=== PATIENT | female | born 1970 | race American Indian/Alaskan Native ===

== ENCOUNTER 2018-03-04 13:09 | Emergency (ER) | payer OTHER ==
[2018-03-04 13:48] VITALS: BMI 28.8
--- NOTE | 2018-03-04 13:52 | ED PDOC ---
Arrival/HPI - General Chief Complaint: Lower Extremity Problem/Injury Time Seen by Provider: 03/04/18 13:11 Historian: Patient - History of Present Illness Narrative History of Present Illness (Text): 03/04/18 13:49 47-year-old female presents today with left foot and ankle pain status post injury 6 days ago. Patient states she stepped incorrectly twisting the foot and ankle 6 days ago. Patient states she is been having slight pain with ambulation. Patient states she only has pain when she applies pressure. Patient states no medications have been taken for pain at home and she is refusing any medications for pain in the emergency room. Patient denies numbness weakness or tingling in the extremity. Patient states she has been ambulating on the ankle and foot normally. Patient states last night she noticed that the foot was swollen so she thought she would come into the emergency room for evaluation. No other complaints Time/Duration: Other (6 days ago) Past Medical History - Provider Review Nursing Documentation Reviewed: Yes - Travel History Have you recently traveled outside [place] w/in the past 3 mons?: No - Reproductive Menopause: No - Cardiac Hx Cardiac Disorders: Yes Hx Hypertension: Yes - Pulmonary Hx Respiratory Disorders: No - Neurological Hx Neurological Disorder: No - HEENT Hx HEENT Disorder: No - Renal Hx Renal Disorder: No - Endocrine/Metabolic Hx Endocrine Disorders: No - Hematological/Oncological Hx Blood Disorders: No - Integumentary Hx Dermatological Disorder: No - Musculoskeletal/Rheumatological Hx Musculoskeletal Disorders: No - Gastrointestinal Hx Gastrointestinal Disorders: No - Genitourinary/Gynecological Hx Genitourinary Disorders: No - Psychiatric Hx Psychophysiologic Disorder: No Hx Substance Use: No - Surgical History Hx Section: Yes - Anesthesia Hx Anesthesia: Yes Hx Anesthesia Reactions: No Hx Malignant Hyperthermia: No Family/Social History - Physician Review Nursing Documentation Reviewed: Yes Family/Social History: Unknown Family HX Smoking Status: Light Smoker < 10 Cigarettes Daily Hx Alcohol Use: Yes (socially) Hx Substance Use: No Allergies/Home Meds Allergies/Adverse Reactions: Allergies No Known Allergies Allergy (Verified 03/04/18 13:47) Review of Systems - Review of Systems Constitutional: absent: Fatigue, Fevers Respiratory: absent: SOB, Cough Cardiovascular: absent: Chest Pain, Palpitations Gastrointestinal: absent: Abdominal Pain, Nausea, Vomiting Genitourinary Female: absent: Dysuria Musculoskeletal: Arthralgias. absent: Back Pain, Neck Pain Skin: absent: Rash, Pruritis Neurological: absent: Headache, Dizziness Psychiatric: absent: Anxiety, Depression Physical Exam Vital Signs Reviewed: Yes Vital Signs Temp Pulse Resp BP Pulse Ox 03/04/18 13:40 197/104 H 03/04/18 13:37 98.4 F 80 17 100 Temperature: Afebrile Blood Pressure: Normal Pulse: Regular Respiratory Rate: Normal Appearance: Positive for: Well-Appearing, Non-Toxic, Comfortable Pain Distress: None Mental Status: Positive for: Alert and Oriented X 3 - Systems Exam Head: Present: Atraumatic Mouth: Present: Moist Mucous Membranes Neck: Present: Normal Range of Motion Respiratory/Chest: Present: Clear to Auscultation, Good Air Exchange. No: Respiratory Distress, Accessory Muscle Use Cardiovascular: Present: Regular Rate and Rhythm, Normal S1, S2. No: Murmurs Lower Extremity: Present: NORMAL PULSES, Normal ROM, Tenderness (left foot/ankle ; + ttp over the lateral aspect of the dorsal aspect of the foot and lateral malleolus. minimal edema, no erythema; full rom of foot and ankle. sensation and distal pulses intact. no achilles tendon tenderness, no calf tenderness. sensation and distal pulses intact. cap refill <2. ), Swelling, Neurovascularly Intact, Capillary Refill < 2 s. No: CALF TENDERNESS, Erythema, Deformity Neurological: Present: Speech Normal Skin: Present: Warm, Dry, Normal Color Psychiatric: Present: Alert, Oriented x 3 Medical Decision Making ED Course and Treatment: 03/04/18 13:53 Patient nontoxic well-appearing in no distress with stable vital signs PT IS REFUSING ANY MEDICATIONS FOR PAIN. X-rays of the left ankle: no fracture xrays of the left foot; ? fracture of cuboid. Patient placed in short leg posterior splint. crutches given for ambulation. I discussed all results in depth with the patient advised to followup with the orthopedist/market manager within the next 2 days. Advised return if symptoms worsen persist or new symptoms develop. pt was advised to use crutches for ambulation. advised patient of elevated blood pressure; pt states she has a hx of elevated blood pressure and didnt take her medications today; she is without headache/ dizziness/weakness/cp or sob. pt was advised to take her BP medication and f/u with PMD regarding her elevated bP. Patient verbalizes understanding of discharge instructions and need for immediate followup. all aspects of this case were discussed the attending of record. Impression: Fracture, foot Motrin every 6 hours as needed for pain Rest, ice, compression, elevation Use crutches for ambulation Followup with the orthopedist within the next 2 days Followup with primary care physician within the next 2 days Return if symptoms worsen persist or if new symptoms develop - RAD Interpretation Radiology Orders: 03/04/18 13:48 ANKLE LEFT 3 VIEWS ROUTINE [RAD] Stat FOOT LEFT 3 VIEWS ROUTINE [RAD] Stat Procedures - Splinting Location: left foot Hand-Made Type: fiberglass Splint: short leg posterior splint Pre-Proc Neuro Vasc Exam: normal Post-Proc Neuro Vasc Exam: normal Disposition/Present on Arrival - Present on Arrival Any Indicators Present on Arrival: No History of DVT/PE: No History of Uncontrolled Diabetes: No Urinary Catheter: No History of Decub. Ulcer: No History Surgical Site Infection Following: None - Disposition Have Diagnosis and Disposition been Completed?: Yes Diagnosis: Fracture, foot Disposition: HOME/ ROUTINE Disposition Time: 14:38 Patient Plan: Discharge Patient Problems: Current Active Problems Problem Status Onset Fracture, foot Acute Condition: GOOD Discharge Instructions (ExitCare): Foot Fracture (DC) Additional Instructions: Motrin every 6 hours as needed for pain Rest, ice, compression, elevation Use crutches for ambulation Followup with the orthopedist within the next 2 days Followup with primary care physician within the next 2 days Return if symptoms worsen persist or if new symptoms develop Referrals: Vladimir Gutierres MD [Primary Care Provider] - Follow up with primary Logan Chand DO [Staff Provider] - Follow up with primary Jorge Huitron DPM [Staff Provider] - Follow up with primary Calli Shah DPM [Staff Provider] - Follow up with primary Forms: [employer] (H[place]er), WORK NOTE
--- NOTE | 2018-03-04 14:29 | RAD ---
Date of service: 03/04/2018 PROCEDURE: Left Ankle Radiographs. HISTORY: ankle pain COMPARISON: Correlation made with concurrent radiographs of the left foot. FINDINGS: BONES: No evidence of acute displaced fracture nor dislocation. Osseous structures including talar dome intact. JOINTS: No significant osteoarthritis. Ankle mortise maintained. Talar dome intact SOFT TISSUES: Mild soft tissue swelling overlying the lateral malleolus OTHER FINDINGS: None. IMPRESSION: No acute fractures. Mild soft tissue swelling overlying the lateral malleolus. If symptoms persist or occult fracture suspected clinically consider repeat radiographs in 7-10 days as most fractures should become radiographically evident in this timeframe.
--- NOTE | 2018-03-04 14:30 | RAD ---
Date of service: 03/04/2018 PROCEDURE: Left Foot Radiographs. HISTORY: foot pain COMPARISON: None. FINDINGS: BONES: No evidence of acute displaced fracture nor dislocation. The osseous structures intact. . Note is made of a small elliptical shaped corticated density apparently within the plantar soft tissues subjacent to the head of the 5th metatarsal nonspecific. JOINTS: Normal. SOFT TISSUES: Normal. OTHER FINDINGS: None. IMPRESSION: No acute fractures. If symptoms persist or occult fracture suspected clinically consider repeat radiographs 7-10 days as most fractures should become radiographically evident in this timeframe.
[2018-03-04 15:15] VITALS: RESP 18
[2018-03-04 15:16] VITALS: BP 194/92; PULSE 74; TEMP 98.9; O2SAT 99
== END 2018-03-04 15:15 | disposition home or self-care (01) ==
LOC: ED 13:09 → MERGE 13:09 → ED 15:15
DX: S92.812A Other fracture of left foot, initial encounter for closed fracture (principal); X50.1XXA Overexertion from prolonged static or awkward postures, initial encounter; Y92.9 Unspecified place or not applicable

== ENCOUNTER 2018-04-21 13:09 | Emergency (ER) | payer OTHER ==
[2018-04-21 13:10] VITALS: BMI 28.8
[2018-04-21 13:48] VITALS: RESP 18; TEMP 98; O2SAT 100
--- NOTE | 2018-04-21 13:52 | ED PDOC ---
Arrival/HPI - General Chief Complaint: Medical Clearance Time Seen by Provider: 04/21/18 13:38 Historian: Patient - History of Present Illness Time/Duration: Other (One month) Symptom Onset: Sudden Symptom Course: Improving Associated Symptoms (Text): 04/21/18 13:49 Patient reports that she injured her left foot and her right elbow approximately one month ago. She was seen by the orthopedist , and has a follow-up appointment on Tuesday (3 days). She reports that she was told by the orthopedist to go to the emergency department and get repeat x-rays of her left foot and right elbow prior to her appointment. She does not have a prescription. She is able to ambulate with no difficulty. Her foot is nontender with no swelling and no skin changes. Her elbow has full range of motion and is nontender. Past Medical History - Infectious Disease Hx of Infectious Diseases: None - Cardiac Hx Cardiac Disorders: Yes Hx Hypertension: Yes - Pulmonary Hx Respiratory Disorders: No - Neurological Hx Neurological Disorder: No - HEENT Hx HEENT Disorder: No - Renal Hx Renal Disorder: No - Endocrine/Metabolic Hx Endocrine Disorders: No - Hematological/Oncological Hx Blood Disorders: No - Integumentary Hx Dermatological Disorder: No - Musculoskeletal/Rheumatological Hx Musculoskeletal Disorders: No - Gastrointestinal Hx Gastrointestinal Disorders: No - Genitourinary/Gynecological Hx Genitourinary Disorders: No - Psychiatric Hx Psychophysiologic Disorder: No Hx Substance Use: No - Surgical History Hx Section: Yes - Anesthesia Hx Anesthesia: Yes Hx Anesthesia Reactions: No Hx Malignant Hyperthermia: No Family/Social History - Physician Review Nursing Documentation Reviewed: Yes Family/Social History: Unknown Family HX Smoking Status: Light Smoker < 10 Cigarettes Daily Hx Alcohol Use: Yes (socially) Hx Substance Use: No Allergies/Home Meds Allergies/Adverse Reactions: Allergies No Known Allergies Allergy (Verified 04/21/18 13:45) Home Medications: Home Meds Medication Instructions Recorded Confirmed No Known Home Med 04/21/18 04/21/18 Review of Systems - Physician Review All systems were reviewed & negative as marked: Yes Physical Exam Vital Signs Temp Pulse Resp BP Pulse Ox 04/21/18 13:47 98 F 90 18 175/117 H 100 Temperature: Afebrile Blood Pressure: Hypertensive (Known hypertension. She does not take her medication as prescribed.) Pulse: Regular Respiratory Rate: Normal Appearance: Positive for: Well-Appearing, Non-Toxic, Comfortable Pain Distress: None Mental Status: Positive for: Alert and Oriented X 3 - Systems Exam Upper Extremity: Present: Normal Inspection, Normal ROM, NORMAL PULSES, Neurovascularly Intact. No: Cyanosis, Edema, Tenderness, Swelling, Erythema, Deformity Lower Extremity: Present: Normal Inspection, NORMAL PULSES, Normal ROM, Neurovascularly Intact. No: Edema, Cyanosis, Phil's Sign, Tenderness, Swelling, Erythema, Deformity Skin: Present: Warm, Dry, Normal Color. No: Rashes Medical Decision Making ED Course and Treatment: 04/21/18 14:09 Patient is now reporting that she does have a prescription for these x-rays, but it was more convenient for her to come to the emergency department. 04/21/18 15:02 Hypertension check with PMD. - RAD Interpretation Radiology Orders: 04/21/18 13:47 FOOT LEFT 3 VIEWS ROUTINE [RAD] Stat 04/21/18 13:48 ELBOW RIGHT 3 VIEWS ROUTINE [RAD] Stat Left foot and right elbow x-rays show no fracture or dislocation as read by the radiologist. Supervisor Of Operations: Radiologist Disposition/Present on Arrival - Present on Arrival Any Indicators Present on Arrival: No History of DVT/PE: No History of Uncontrolled Diabetes: No Urinary Catheter: No History of Decub. Ulcer: No History Surgical Site Infection Following: None - Disposition Have Diagnosis and Disposition been Completed?: Yes Diagnosis: Elbow contusion, Metatarsal fracture Disposition: HOME/ ROUTINE Disposition Time: 14:41 Patient Plan: Discharge Patient Problems: Current Active Problems Problem Status Onset Elbow contusion Acute Metatarsal fracture Acute Condition: GOOD Additional Instructions: Keep your appointment with , already scheduled in 3 days. Forms: [employer] (Malay)
[2018-04-21 14:50] VITALS: BP 181/98; PULSE 88
--- NOTE | 2018-04-21 14:58 | RAD ---
Date of service: 04/21/2018 PROCEDURE: Radiographs of the right elbow. HISTORY: trauma COMPARISON: No prior. FINDINGS: BONES: No acute fracture. JOINTS: Unremarkable. SOFT TISSUES: Normal. JOINT EFFUSION: None. OTHER FINDINGS: None. IMPRESSION: No demonstrated fracture or dislocation.
--- NOTE | 2018-04-21 15:00 | RAD ---
Date of service: 04/21/2018 PROCEDURE: Left Foot Radiographs. HISTORY: trauma COMPARISON: Left foot radiographs dated 03/04/2018 FINDINGS: BONES: No acute fracture. JOINTS: Normal. SOFT TISSUES: Normal. OTHER FINDINGS: None. IMPRESSION: No demonstrated fracture or dislocation.
== END 2018-04-21 15:09 | disposition home or self-care (01) ==
LOC: ED 13:09
DX: S50.01XD Contusion of right elbow, subsequent encounter (principal); S92.302D Fracture of unspecified metatarsal bone(s), left foot, subsequent encounter for fracture with routine healing; X50.1XXD Overexertion from prolonged static or awkward postures, subsequent encounter